=== PATIENT | male | born 1960 | race Caucasian/White ===

== ENCOUNTER 2019-11-05 15:46 | Inpatient (IN) | payer MEDICARE, MEDICAID ==
[~2019-11-05] VITALS: Ht 167.6 cm; Wt 58.3 kg
[2019-11-05 17:04] LABS: Neutrophils # (auto) 11.3 10 ^3/uL (1.6-8.6); White Blood Cell 12.9 10^3/uL (4.4-10.8)
[2019-11-05 17:07] LABS: Basophils # (auto) 0.1 10 ^3/uL (0-0.2); Basophils % (auto) 0.5 % (0.0-2.0); Eosinophils # (auto) 0.1 10 ^3/uL (0-0.8); Eosinophils % (auto) 1.1 % (0.0-7.0); Hemoglobin 13.6 g/dL (13.5-17.5); Lymphocytes # (auto) 0.6 10 ^3/uL (0.4-5.4); Lymphocytes % (auto) 4.4 % (10.0-50.0); Mean Corpuscular Hemoglobin 33.9 pg (28.0-32.0); Mean Corpuscular Hgb Conc. 33.1 g/dL (32.0-36.0); Mean Corpuscular Volume 102.2 fL (80.0-100.0); Monocytes # (auto) 0.8 10 ^3/uL (0-1.3); Monocytes % (auto) 6.3 % (0.0-12.0); Neutrophils % (auto) 87.7 % (37.0-80.0); Platelet Count (auto) 244 10^3/uL (140-450); Red Blood Cells 4.01 10^6/uL (4.5-5.90); Red Cell Distribution Width 12.6 % (11.8-14.3)
[2019-11-05 17:24] LABS: Alanine Aminotransferase 64 U/L (16-61); Albumin 3.4 g/dL (3.4-5.0); Anion Gap 13 (5-15); Blood Urea Nitrogen 66 mg/dL (7-18); Calcium 8.5 mg/dL (8.5-10.1); Carbon Dioxide 23 mmol/L (21-32); Chloride 101 mmol/L (98-107); Glucose 185 mg/dL (74-106); Lipase 1186 U/L (73-393); Potassium 3.7 mmol/L (3.5-5.1); Sodium 137 mmol/L (136-145)
[2019-11-05 17:32] LABS: Alkaline Phosphatase 132 U/L (45-117); Aspartate Aminotransferase 86 U/L (15-37); BUN/Creatinine Ratio 8.8; Bilirubin, Total 0.6 mg/dL (0.2-1.0); GFR African American 10 mL/min; GFR Non-African American 8 mL/min; Total Protein 7.1 g/dL (6.4-8.2)
[2019-11-05] MEDS ORDERED: PIPERACILLIN-TAZOB 3.375GM 100 ML IV ONE (17:45)
[2019-11-05] MEDS ORDERED: NITROGLYCERIN 0.4 MG SL TAB SL PRN ×2 (18:15→18:30)
[2019-11-05] MEDS ORDERED: MORPHINE SULF INJ 2 MG/ML SYRINGE 1ML IV PRN ×2 (18:15→18:30)
[2019-11-05] MEDS ORDERED: ACETAMINOPHEN 325 MG TAB PO PRN (18:30)
[2019-11-05] MEDS ORDERED: LORazepam 0.5 MG TAB PO PRN (18:30)
[2019-11-05] MEDS ORDERED: ONDANSETRON HCL 4 MG/2 ML VIAL IV PRN (18:30)
[2019-11-05] MEDS ORDERED: DOCUSATE SOD 100 MG CAP PO PRN (18:30)
[2019-11-05] MEDS ORDERED: ALUM & MAG HYDROX-SIMETH LIQ(MAALOX) 30 ML PO PRN (18:30)
[2019-11-05] MEDS ORDERED: FERR1TAB17 PO (18:33)
[2019-11-05] MEDS ORDERED: ATOR20TA50 PO (18:33)
[2019-11-05] MEDS ORDERED: CHOL20007 PO (18:33)
[2019-11-05] MEDS ORDERED: AMLO10TA13 PO (18:33)
[2019-11-05] MEDS ORDERED: INSUINJ9 SC (18:33)
[2019-11-05] MEDS ORDERED: FOLI1TAB6 PO (18:33)
[2019-11-05] MEDS ORDERED: OMEP-260 PO (18:33)
[2019-11-05] MEDS ORDERED: B-CO-5 PO (18:33)
[2019-11-05] MEDS ORDERED: INSU1INJ5 SC (18:33)
[2019-11-05] MEDS ORDERED: CHOL100040 PO (18:33)
[2019-11-05] MEDS ORDERED: OMEG100078 PO (18:33)
[2019-11-05] MEDS ORDERED: HYDR50TA15 PO (18:33)
[2019-11-05] MEDS ORDERED: CINA30TA2 PO (18:34)
[2019-11-05] MEDS ORDERED: DEXTROSE (50%) 50ML SYRG IV PRN ×2 (18:45→19:00)
[2019-11-05] MEDS ORDERED: INSULIN LANTUS (GLARGINE) 1 /0.01ml (100units/ml) SC ONE ×2 (18:45→18:54)
[2019-11-05] MEDS ORDERED: VANCOMYCIN PER PHARMACY 0 MG IV SCH (19:00)
[2019-11-05] MEDS ORDERED: PANTOPRAZOLE 40 MG/10 ML VIAL INJ IV ONE (19:15)
[2019-11-05] MEDS ORDERED: hydrALAZINE HCL 20 MG/ML VL IV PRN (19:30)
[2019-11-05] MEDS ORDERED: THIAMINE 100mg/ml INJ (200mg/2ml VIAL) IV ONE (19:30)
[2019-11-05 20:03] LABS: Cholesterol 119 mg/dL (< 200); HDL Cholesterol 52 mg/dL (40-59); LDL Cholesterol 52 mg/dL (< 100); Triglycerides 39 mg/dL (< 150)
--- NOTE | 2019-11-05 20:05 | NUR ---
MS admit from [facility] admitted to tele/MS after SBAR received. Patient oriented to RADHA NETTLES, RN primary RN, unit, room, bed, and unit policies regarding patient care and visiting hours. Patient weighed by bedscale and encouraged to call for assisance as needed. All questions and concerns addressed, patient verbalized understanding. bed in lowest position, locked, side rails X 2 up, call light is within reach. Pt denies shortness of breath or chest pain. Will continue to monitor Q1H and/or PRN.
[2019-11-05 20:10] VITALS: BP 155/83
[2019-11-05] MEDS ORDERED: VANCOMYCIN 1GM/250ML 250 ML IV ONE (20:15)
--- NOTE | 2019-11-05 20:20 | NUR ---
Patient Belongings Patient belongings list completed. Patient has money and home medications at bedside. See quantity on list in chart. Patient refusing to have home medications taken to pharmacy and refuses to have money put in safe. Explained risks and benefits of having belongings at bedside, patient verbalized understanding. Informed patient's primary RN.
[2019-11-05] MEDS: MORPHINE SULF INJ 2 MG/ML SYRINGE 1ML IV PRN (21:05)
[2019-11-05 22:00] VITALS: BP 155/83
[2019-11-05] MEDS: hydrALAZINE HCL 25 MG TAB PO SCH (22:12)
[2019-11-05] MEDS: SUCRALFATE 1 GM TAB PO SCH (22:13)
[2019-11-05] MEDS: ATORVASTATIN 20 MG TAB PO SCH (22:13)
[2019-11-05] MEDS ORDERED: CLON0.2D6 PO (23:15)
[2019-11-06] MEDS ORDERED: ACCU-CHEK COMFORT CURVE STRIP VI SCH
[2019-11-06] MEDS ORDERED: InsuLIN REG 1unit/0.01ml Soln (100units/ml) SC SCH
--- NOTE | 2019-11-06 00:06 | NUR ---
PD Pt states he is getting PD every night from 8 pm to 6 am. Spoke to hospitalist regarding pt's PD situation. Pilot Safety Inspector consult was placed in ED. No new orders received at this time. Will continue care.
[2019-11-06] MEDS: ACCU-CHEK COMFORT CURVE STRIP VI SCH ×5 (00:07→23:46)
[2019-11-06] MEDS: InsuLIN REG 1unit/0.01ml Soln (100units/ml) SC SCH ×5 (00:10→23:58)
[2019-11-06 05:00] VITALS: BP 116/69
[2019-11-06] MEDS: hydrALAZINE HCL 25 MG TAB PO SCH ×3 (05:22→21:36)
[2019-11-06] MEDS: PIPERACILLIN-TAZOB 2.25GM 50 ML IV SCH ×2 (05:22→18:01)
[2019-11-06 05:50] LABS: Basophils # (auto) 0 10 ^3/uL (0-0.2); Eosinophils # (auto) 0 10 ^3/uL (0-0.8); Eosinophils % (auto) 0.2 % (0.0-7.0); Lymphocytes # (auto) 0.6 10 ^3/uL (0.4-5.4); Monocytes # (auto) 0.7 10 ^3/uL (0-1.3); Monocytes % (auto) 9.2 % (0.0-12.0)
[2019-11-06 05:52] LABS: Basophils % (auto) 0.3 % (0.0-2.0); Hematocrit 38.1 % (41.0-53.0); Hemoglobin 13.5 g/dL (13.5-17.5); Lymphocytes % (auto) 7.5 % (10.0-50.0); Mean Corpuscular Hemoglobin 35.2 pg (28.0-32.0); Mean Corpuscular Hgb Conc. 35.4 g/dL (32.0-36.0); Mean Corpuscular Volume 99.4 fL (80.0-100.0); Neutrophils # (auto) 6.2 10 ^3/uL (1.6-8.6); Neutrophils % (auto) 82.8 % (37.0-80.0); Platelet Count (auto) 249 10^3/uL (140-450); Red Blood Cells 3.84 10^6/uL (4.5-5.90); Red Cell Distribution Width 12.7 % (11.8-14.3); White Blood Cell 7.5 10^3/uL (4.4-10.8)
[2019-11-06 06:17] LABS: Potassium 4.1 mmol/L (3.5-5.1)
[2019-11-06] MEDS: SUCRALFATE 1 GM TAB PO SCH ×4 (06:23→21:36)
[2019-11-06 06:27] LABS: BUN/Creatinine Ratio 9.6; Calcium 8.6 mg/dL (8.5-10.1)
[2019-11-06 09:00] VITALS: BP 133/68
[2019-11-06] MEDS ORDERED: LORazepam 2MG/ML-1ML VIAL IV PRN (09:30)
--- NOTE | 2019-11-06 09:30 | NUR ---
Spoke to GI Doctor Jamar Quiglye aware of patient's status. New orders received for Ativan prn anxiety and clear liq diet at this time. Will cont care
[2019-11-06] MEDS ORDERED: CINACALCET HYDROCHLORIDE 30 MG TAB PO SCH (10:00)
[2019-11-06] MEDS: B-COMPLEX W/ C & FOLIC ACID(NEPHROVITE TAB) PO SCH (10:04)
[2019-11-06] MEDS: FOLIC ACID 1 MG TAB PO SCH (10:04)
[2019-11-06] MEDS: ENOXAPARIN SOD 30 MG/0.3 ML SYRINGE SC SCH (10:04)
[2019-11-06] MEDS: CHOLECALCIFEROL (VITD3) 1,000UNIT=25mCg TAB PO SCH (10:04)
[2019-11-06] MEDS: PANTOPRAZOLE 40 MG/10 ML VIAL INJ IV SCH (10:05)
[2019-11-06] MEDS: THIAMINE HCL 100 MG TAB PO SCH (10:29)
[2019-11-06] MEDS: HYDROcodone-ACET 5/325MG TAB PO PRN (10:31)
--- NOTE | 2019-11-06 10:55 | NUR ---
at bedside MD Bermeo at bedside aware of patient's status, pt denies n/v/d. Patient denies pain at this time. Patient tolerating clear liq diet. Cont care
[2019-11-06 11:33] LABS: Calcium 8.6 mg/dL (8.5-10.1); Potassium 3.9 mmol/L (3.5-5.1)
[2019-11-06 11:36] LABS: Total Protein 6.5 g/dL (6.4-8.2)
[2019-11-06] MEDS: PERITONEAL DIALYSIS 2.5% SOLN 2,000 ML IP SCH ×2 (12:00→18:00)
--- NOTE | 2019-11-06 12:26 | NUR ---
Awaiting Peritoneal dialysate from Pharmacy at this time.
[2019-11-06 13:00] VITALS: BP 133/69
--- NOTE | 2019-11-06 13:00 | NUR ---
PD INFUSED 2000ML INTO PERITONEAL PORT. DWELLING AT THIS TIME. CONT CARE
[2019-11-06 17:00] VITALS: BP 162/86
--- NOTE | 2019-11-06 18:23 | NUR ---
PD DIALYSIS OUTPUT IS CLEAR AND YELLOW 2600ML OUT. 2100ML INFUSED IN AT THIS TIME AND DWELLING. CONT TO MONITOR
--- NOTE | 2019-11-06 19:00 | NUR ---
Patient care endorsed endorsed care to [place]. Patient dialysate dwelling at this time. Dressing c/d/i. Call light within reach.
--- NOTE | 2019-11-06 19:15 | NUR ---
Opening Shift Note Assumed care of patient. Patient is awake, alert, and oriented x 4, resting in bed. PD is in phase of dwelling. No S/S of distress noted, no pain reported. Instructed on POC and to call for assistance as needed. Will continue to monitor for changes Q1hr and PRN.
[2019-11-06 19:30] LABS: Urine WBC None Seen /hpf (0 - 3)
[2019-11-06 19:57] LABS: Urine Bacteria NONE SEEN /hpf (None Seen); Urine Blood Negative /uL (Negative); Urine Specific Gravity 1.012 (1.001-1.035)
[2019-11-06 20:00] VITALS: BP 126/76
[2019-11-06 20:06] LABS: Alcohol, Urine < 3.0 mg/dL (0-10); Amphetamine Screen, Urine NEGATIVE (NEGATIVE); Barbiturate Scree,Urine NEGATIVE (NEGATIVE); Benzodiazephine Screen, Urine NEGATIVE (NEGATIVE); Cannabinoid Screen, Urine POSITIVE (NEGATIVE); Cocaine Screen, Urine NEGATIVE (NEGATIVE); Opiate Scree,Urine POSITIVE (NEGATIVE); Phencyclidine Screen, Urine NEGATIVE (NEGATIVE)
[2019-11-06] MEDS: ATORVASTATIN 20 MG TAB PO SCH (21:37)
[2019-11-06] MEDS: CINACALCET HYDROCHLORIDE 30 MG TAB PO SCH (21:37)
[2019-11-06 22:02] VITALS: BP 126/76
[2019-11-07] MEDS: PERITONEAL DIALYSIS 2.5% SOLN 2,000 ML IP SCH ×4 (00:01→17:33)
--- NOTE | 2019-11-07 00:30 | NUR ---
PD PD output is 2350 ml of clear yellow solution. 2000 ml of PD solution infused at this time. Patient tolerated well. Will continue to monitor patient during dwelling phase PRN.
[2019-11-07 05:04] VITALS: BP 158/85
[2019-11-07] MEDS: PIPERACILLIN-TAZOB 2.25GM 50 ML IV SCH ×2 (05:31→17:33)
[2019-11-07] MEDS: ACCU-CHEK COMFORT CURVE STRIP VI SCH ×3 (05:31→17:30)
[2019-11-07] MEDS: hydrALAZINE HCL 25 MG TAB PO SCH ×3 (05:32→22:11)
[2019-11-07] MEDS: InsuLIN REG 1unit/0.01ml Soln (100units/ml) SC SCH ×4 (06:06→17:44)
--- NOTE | 2019-11-07 06:22 | NUR ---
PD PD output is 2300 ml of clear yellow solution. 2100 ml of PD solution infused at this time. Will continue to monitor.
[2019-11-07] MEDS: SUCRALFATE 1 GM TAB PO SCH ×4 (06:43→22:11)
[2019-11-07] MEDS: MORPHINE SULF INJ 2 MG/ML SYRINGE 1ML IV PRN (06:44)
[2019-11-07 06:58] LABS: Potassium 4.3 mmol/L (3.5-5.1)
[2019-11-07 07:08] LABS: Albumin 2.6 g/dL (3.4-5.0); BUN/Creatinine Ratio 8.1; Bilirubin, Total 0.6 mg/dL (0.2-1.0); Calcium 8.2 mg/dL (8.5-10.1); Total Protein 6.2 g/dL (6.4-8.2)
[2019-11-07 08:00] VITALS: BP 106/75
--- NOTE | 2019-11-07 08:00 | NUR ---
Opening Shift Note Assumed care of patient, awake and alert. No S/S of distress/SOB or pain. Instructed on POC and to call for assist PRN, will continue to monitor for changes Q1hr and PRN. Bed locked in lowest position with two side rails up and call light in reach. Patient oriented to bathroom.
[2019-11-07 09:00] VITALS: BP 106/75
--- NOTE | 2019-11-07 09:52 | NUR ---
RECEIVED CALL FROM DR Jamar ESPINAL TO ADVANCE DIET TO FULL LIQUIDS FOR LUNCH AND SOFT MECHANICAL DIET FOR DINNER AND PER DR ESPINAL PATIENT IS CLEARED TO GO HOME IF DIET IS TOLERATED.
[2019-11-07] MEDS: CHOLECALCIFEROL (VITD3) 1,000UNIT=25mCg TAB PO SCH (11:06)
[2019-11-07] MEDS: B-COMPLEX W/ C & FOLIC ACID(NEPHROVITE TAB) PO SCH (11:06)
[2019-11-07] MEDS: PANTOPRAZOLE 40 MG/10 ML VIAL INJ IV SCH (11:06)
[2019-11-07] MEDS: FOLIC ACID 1 MG TAB PO SCH (11:07)
[2019-11-07] MEDS: ENOXAPARIN SOD 30 MG/0.3 ML SYRINGE SC SCH (11:07)
[2019-11-07] MEDS: THIAMINE HCL 100 MG TAB PO SCH (11:07)
--- NOTE | 2019-11-07 11:30 | NUR ---
PATIENT IS REFUSING TO DO PERITONEAL DIALYSIS (DWELLING) HE STATES THAT HIS PD IS DONE AT HOME Q10 NOT Q6 AND HE WOULD LIKE TP SPEAK TO DR DODSON BEFORE DWELLING. AT THIS TIME PATIENT IS REQUESTING TO HAVE HIS FLUID DRAINED AND WILL WAIT FOR DR DODSON TO CLARIFY AND OR CHANGE THE INTERVALS TO Q19 INSTEAD OF 6.
--- NOTE | 2019-11-07 11:40 | NUR ---
DRAINED PERITONEAL FLUID AND TOTAL OUT WAS 2150 ML
[2019-11-07] MEDS: HYDROcodone-ACET 5/325MG TAB PO PRN ×2 (11:49→17:55)
[2019-11-07 13:00] VITALS: BP 123/77
[2019-11-07] MEDS ORDERED: VANCOMYCIN 750mg/250ml 250 ML IV SCH (14:00)
--- NOTE | 2019-11-07 15:00 | NUR ---
RECEIVED A CALL FROM DR DODSON, SPOKE TO HIM REGARDING PATIENT REFUSING Q6 PERITONEAL DIALYSIS HE WOULD LIKE TO DO Q 10 HE DOES AT HOME. PER DR DODSON PATIENT CAN DO WHAT EVER HE WISHES REGARDING HIS HOME ROUTINE. I ALSO SPOKE TO DR BATEMAN AND PER DR BATEMAN SHE IS ALSO OKAY WITH PATIENT CONTINUING HOME DIALYSIS ROUTINE. WILL PLACE A COMMUNICATION ORDER.
--- NOTE | 2019-11-07 15:35 | NUR ---
PER DR DODSON PATIENT CAN GO HOME. I PAGED DR BATEMAN AND PER DR BATEMAN WE ARE STILL MONITORING PATIENT.
[2019-11-07 16:56] VITALS: BP 148/87
--- NOTE | 2019-11-07 17:20 | NUR ---
PATIENT BLOOD SUGAR 411 ENVIRONMENT COORDINATOR HOSPITALIST PAGED WILL AWAIT CALL BACK.
--- NOTE | 2019-11-07 17:39 | NUR ---
RECEIVED CALL BACK FROM DR KEE, PER DR KEE DO NOT GIVE 15 UNIT REGULAR GIVE 10 UNITS REGULAR NOW AND 10 UNITS OF LANTUS NOW. ALSO PATIENT IS TO HAVE 15 UNITS LANTUS HS. ORDERS READ BACK TO DR KEE AND CONFIRMED CORRECT. WILL IMPLEMENT.
[2019-11-07] MEDS ORDERED: InsuLIN REG 1unit/0.01ml Soln (100units/ml) SC ONE (17:45)
[2019-11-07] MEDS ORDERED: INSULIN LANTUS (GLARGINE) 1 /0.01ml (100units/ml) SC ONE (17:45)
--- NOTE | 2019-11-07 18:45 | NUR ---
PATIENT PERITONEAL DIALYSIS STARTED. PATIENT INFUSING THE FLUID FOR DWELL AND WANTS TO DRAIN IN 12 HOURS AT 0600. WILL ENDORSE TO NOC.
--- NOTE | 2019-11-07 19:30 | NUR ---
Opening Shift Note Assumed care of patient, awake and alert. No S/S of distress/SOB or pain. Instructed on POC and to call for assist PRN, will continue to monitor for changes Q1hr and PRN.
[2019-11-07 22:00] VITALS: BP 132/81
[2019-11-07] MEDS ORDERED: INSULIN LANTUS (GLARGINE) 1 /0.01ml (100units/ml) SC SCH (22:00)
--- NOTE | 2019-11-07 22:00 | NUR ---
Informed patient regarding scheduled Peritoneal Dialysis exchange at midnight, but patient stated that he would like to be drained in the am. Attempted to educated patient, but patient was adamant about the time of exchange. Will continue to monitor.
[2019-11-07] MEDS: ATORVASTATIN 20 MG TAB PO SCH (22:11)
[2019-11-07] MEDS: CINACALCET HYDROCHLORIDE 30 MG TAB PO SCH (22:21)
[2019-11-08] MEDS: InsuLIN REG 1unit/0.01ml Soln (100units/ml) SC SCH ×3 (01:08→11:38)
[2019-11-08] MEDS: ACCU-CHEK COMFORT CURVE STRIP VI SCH ×3 (01:08→11:38)
[2019-11-08 05:00] VITALS: BP 122/73
[2019-11-08] MEDS: PERITONEAL DIALYSIS 2.5% SOLN 2,000 ML IP SCH ×2 (05:51)
[2019-11-08] MEDS: hydrALAZINE HCL 25 MG TAB PO SCH (06:04)
[2019-11-08] MEDS: PIPERACILLIN-TAZOB 2.25GM 50 ML IV SCH (06:04)
[2019-11-08] MEDS: SUCRALFATE 1 GM TAB PO SCH ×2 (06:05→11:38)
[2019-11-08 06:15] LABS: Basophils # (auto) 0.1 10 ^3/uL (0-0.2); Basophils % (auto) 0.8 % (0.0-2.0); Eosinophils # (auto) 0.3 10 ^3/uL (0-0.8); Hemoglobin 13.4 g/dL (13.5-17.5); Monocytes # (auto) 0.8 10 ^3/uL (0-1.3); Neutrophils # (auto) 4.1 10 ^3/uL (1.6-8.6)
--- NOTE | 2019-11-08 06:15 | NUR ---
Drained approximately 2100ml from PD. Patient tolerated well.
[2019-11-08 06:17] LABS: Eosinophils % (auto) 4.5 % (0.0-7.0); Hematocrit 40.8 % (41.0-53.0); Lymphocytes # (auto) 0.9 10 ^3/uL (0.4-5.4); Lymphocytes % (auto) 15.3 % (10.0-50.0); Mean Corpuscular Hemoglobin 33.4 pg (28.0-32.0); Mean Corpuscular Hgb Conc. 32.8 g/dL (32.0-36.0); Mean Corpuscular Volume 101.8 fL (80.0-100.0); Monocytes % (auto) 12.5 % (0.0-12.0); Neutrophils % (auto) 66.9 % (37.0-80.0); Nucleated Red Blood Cells % 0.1 %; Platelet Count (auto) 257 10^3/uL (140-450); Red Blood Cells 4.01 10^6/uL (4.5-5.90); Red Cell Distribution Width 12.6 % (11.8-14.3); White Blood Cell 6.1 10^3/uL (4.4-10.8)
--- NOTE | 2019-11-08 06:18 | NUR ---
Patient stated he felt "shaky" in the morning and his blood sugar may be low. Blood sugar was 72. Patient given 2 juices. Will continue to monitor.
--- NOTE | 2019-11-08 06:19 | NUR ---
Patient refused his 0600 scheduled PD because he was "going home today".
[2019-11-08 07:09] LABS: Calcium 8.3 mg/dL (8.5-10.1); Potassium 3.7 mmol/L (3.5-5.1)
[2019-11-08 07:10] LABS: BUN/Creatinine Ratio 7.7
--- NOTE | 2019-11-08 07:40 | NUR ---
*CRITICAL LAB* RECEIVED CALL WITH BLOOD SUGAR CRITICAL LAB VALUE. WILL REASSESS.
--- NOTE | 2019-11-08 07:45 | NUR ---
BS REASSESSMENT PATIENT SITTING UP ON BED EATING BREAKFAST, DENIES ANY SYMPTOMS ASSOCIATED WITH HYPOGLYEMIA. BS ASSESSED THROUGH FINGER STICK AND CURRENT READING IS 149. WILL NOTIFY LAB OF CURRENT READING AND WILL CONTINUE TO MONITOR.
[2019-11-08 08:00] VITALS: BP 139/79
--- NOTE | 2019-11-08 08:10 | NUR ---
ROUNDS PATIENT IS REQUESTING INSULIN AT TIME OF ROUNDING. PATIENT EDUCATED ON MEDICATION SCHEDULE AND REASONS WHY INSULIN CANNOT BE SAFELY ADMINISTERED AT THIS TIME. PATIENT STATES, "IF YOU DONT GIVE ME MY INSULIN SHOT, I WILL!" PATIENT GUARDING A BAG IN WHICH HE STATES IS HOLDING ALL HIS MEDICATIONS INCLUDING INSULIN. PATIENT ADVISED TO TURN IN HOME MEDICATIONS TO RN FOR PHARMACY HOLD TO AVOID DOUBLE DOSING AND ALL RISKS OF SELF MEDICATING EXPLAINED IN DETAIL. PATIENT THEN STATES, "I DO WHAT I WANT!" WILL NOTIFY DRY HOUSE TENDER.
[2019-11-08 09:00] VITALS: BP 139/79
--- NOTE | 2019-11-08 09:05 | NUR ---
CALL LIGHT PATIENT MUSEUM PREPARATOR LIGHT STATING, "MY BLOOD SUGAR IS NOW UP TO THE 200s, GIVE ME SOME INSULIN!" PATIENT AGAIN EXPLAINED IN DETAIL THAT INSULIN IS ON A SLIDING SCALE THAT WILL BE ASSESSED AT 11:30 AND CANNOT BE ADMINISTERED AT THIS TIME. PATIENT THEN STATES, "FINE, ILL DO IT MYSELF." PATIENT ADVISED AGAINST IT BUT CONTINUES TO DIG IN HIS MEDICATION BAG. WILL CONTINUE TO MONITOR. INSPECTOR AND TESTERVIVI CALDERON
[2019-11-08] MEDS: THIAMINE HCL 100 MG TAB PO SCH (09:53)
[2019-11-08] MEDS: FOLIC ACID 1 MG TAB PO SCH (09:53)
[2019-11-08] MEDS: PANTOPRAZOLE 40 MG/10 ML VIAL INJ IV SCH (09:53)
[2019-11-08] MEDS: CHOLECALCIFEROL (VITD3) 1,000UNIT=25mCg TAB PO SCH (09:54)
[2019-11-08] MEDS: ENOXAPARIN SOD 30 MG/0.3 ML SYRINGE SC SCH (09:54)
[2019-11-08] MEDS: B-COMPLEX W/ C & FOLIC ACID(NEPHROVITE TAB) PO SCH (09:54)
[2019-11-08 12:17] VITALS: BP 122/73
[2019-11-08 13:00] VITALS: BP 151/89
--- NOTE | 2019-11-08 13:44 | NUR ---
Discharge instructions given as ordered. Encourage to follow up with PMD as instructed. All questions and concerns addressed. Patient verbalized understanding. Medication reconciliation form completed and copy given to patient. IV removed with catheter intact, pressure dressing applied. Telemetry unit returned to ICU. Patient taken to vehicle via wheelchair with all personal belongings, accompanied by staff. No distress noted at time of departure.
== END 2019-11-08 13:42 | disposition home or self-care (01) | DRG 438 ==
LOC: EDBD 15:46 → ER 15:46 → TELE 15:47 → TELE-WESTW 20:05
PROVIDERS: ADMIT Hospitalist; ATTEND Internal Medicine Pulmonary Disease
DX: K85.90 Acute pancreatitis without necrosis or infection, unspecified (principal); N18.6 End stage renal disease; I12.0 Hypertensive chronic kidney disease with stage 5 chronic kidney disease or end stage renal disease; B17.9 Acute viral hepatitis, unspecified; G89.18 Other acute postprocedural pain; Z99.2 Dependence on renal dialysis; E11.40 Type 2 diabetes mellitus with diabetic neuropathy, unspecified; E11.22 Type 2 diabetes mellitus with diabetic chronic kidney disease; K21.9 Gastro-esophageal reflux disease without esophagitis; M19.90 Unspecified osteoarthritis, unspecified site; Z90.49 Acquired absence of other specified parts of digestive tract; K31.9 Disease of stomach and duodenum, unspecified; E11.319 Type 2 diabetes mellitus with unspecified diabetic retinopathy without macular edema; D63.1 Anemia in chronic kidney disease; K59.00 Constipation, unspecified; K75.81 Nonalcoholic steatohepatitis (NASH)
CPT/HCPCS: 36415; 74176; 76700; 80048; 80053; 80061; 80202; 80307; 81001; 82962; 83036; 83605; 83690; 84484; 85025; 87040; 87081; 87086; C9113; G0378; J1815; J2405; J2543